=== PATIENT | female | born 1960 | race Caucasian/White ===

== ENCOUNTER 2017-05-29 14:00 | Emergency (ER) | payer BC ==
[~2017-05-29] VITALS: Ht 156.2 cm; Wt 90.3 kg
[2017-05-29 14:00] VITALS: O2SAT 94
[2017-05-29] MEDS ORDERED: ONDANSETRON INJ 2 MG/ML 2 ML VIAL IV STA (14:09)
--- NOTE | 2017-05-29 14:10 | EMERGENCY ROOM VISIT NOTE ---
History Report prepared by Rajendra: Lui Soares Under the Supervision of: Dr. Manuel Younger D.O. First contact with patient: 14:00 Stated Complaint: L SIDE RIB PAIN History of Present Illness The patient is a 56 year old female who presents to the Emergency Room with complaints of constant, left sided rib pain beginning earlier today. The patient states she has been experiencing a chronic cough for the past 1.5 years. She reports she coughed today and heard and felt a pop. The patient notes she can no longer breathe deeply without her pain increasing. She states she was evaluated at [facility] for a boil on her bottom. The patient reports she was discharged with antibiotics. She notes she recently started RA medication, and she thinks this may be causing her boils. The patient states she was told she had a fever while at [facility]. She reports she has a history of asthma and bronchiectasis. The patient notes she is currently on Prednisone. She states she quit smoking 19 years ago. She denies new pain in her legs, a history of a blood clot in her legs or lungs, nausea, vomiting, runny nose, and starting new medication. Source of History: patient Onset: earlier today Position: other (left-sided rib) Quality: other (pop) Timing: constant Modifying Factors (Worsening): breathing (deep) Associated Symptoms: + fevers, + cough (chronic, 1.5 years), No nausea, No vomiting Note: Associated symptoms: boil on her bottom Denies: new pain in her lungs, runny nose Review of Systems See HPI for pertinent positives & negatives. A total of 10 systems reviewed and were otherwise negative. Past Medical & Surgical Medical Problems: (1) Asthma (2) Bronchiectasis Family History Patient reports no known family medical history. Social History Smoking Status: Former Smoker (quit 19 years ago) Marital Status: Housing Status: lives with significant other Occupation Status: employed Current/Historical Medications Scheduled Acetaminophen (Tylenol Arthritis Ext Rel), 1,300 MG PO BID Aspirin (Aspirin Ec), 81 MG PO DAILY Atorvastatin (Lipitor), 10 MG PO DAILY Fluticasone Propionate (Nasal) (Flonase Allergy Relief), 1 SPRAY LUCY DAILY Ipratropium-Albuterol (Duoneb), 1 TREATMENT INH QID Loratadine (Claritin), 10 MG PO DAILY Mometasone Furoate-Formoterol (Dulera 100/5 Mcg), 2 PUFFS INH BID Montelukast Sodium (Montelukast Sodium), 10 MG PO DAILY Nystatin (Nystatin Cream), 0 EXT BID Nystatin (Topical) (Nystop), 1 APPLN TOP TID Stanley-3 Fatty Acids (Fish Oil), 2 CAP PO BID Omeprazole (Prilosec), 20 MG PO BID Prednisone (Prednisone), 10 MG PO DAILY Tiotropium [place] (Spiriva Handihaler), 1 CAP INH DAILY Tocilizumab (Actemra), 162 MG SC EVERY 14 DAYS Scheduled PRN Albuterol Hfa (Ventolin Hfa), 2 PUFFS INH Q4H PRN for SOB/Wheezing Oxycodone Immediate Rel Tab (Roxicodone Ir), 1-2 TAB PO Q4H PRN for Severe Pain Allergies Coded Allergies: No Known Allergies (Unverified , 05/29/17) Physical Exam Vital Signs Date Time Temp Pulse Resp B/P (MAP) Pulse Ox O2 Delivery O2 Flow Rate FiO2 05/29/17 16:55 36.8 80 25 157/72 94 05/29/17 16:35 80 25 94 05/29/17 16:31 157/72 05/29/17 16:05 79 19 91 05/29/17 16:01 158/81 05/29/17 15:43 146/92 05/29/17 15:43 76 19 146/92 93 Room Air 05/29/17 15:05 77 17 05/29/17 15:00 84 23 152/72 91 05/29/17 14:32 140/94 05/29/17 14:30 84 19 05/29/17 14:17 77 05/29/17 14:11 163/76 05/29/17 14:00 94 Room Air 05/29/17 14:00 36.8 86 20 172/71 94 Room Air 05/29/17 14:00 94 Room Air Physical Exam GENERAL: Patient is awake, alert, and is somewhat anxious and uncomfortable. EYES: The conjunctivae are clear. The pupils are round and reactive. EARS, NOSE, MOUTH AND THROAT: The nose is without any evidence of any deformity. Mucous membranes are moist tongue is midline NECK: The neck is nontender and supple. RESPIRATORY: Splinting respiration noted. Diminished breath sounds noted throughout. CARDIOVASCULAR: Regular rate and rhythm noted there no murmurs rubs or gallops normal S1 normal S2 GASTROINTESTINAL: The abdomen is soft. Bowel sounds are present in all quadrants. Abdomen is nontender MUSCULOSKELETAL/EXTREMITIES: There is no evidence of gross deformity full range of motion is noted in the hips and shoulders. Tenderness to palpation over the left lateral chest wall. SKIN: There is no obvious evidence of any rash. There are no petechiae, pallor or cyanosis noted. No pedal edema. Induration and erythema on the left buttock consistent with recent diagnosis of cellulitis. NEUROLOGIC: Patient is awake alert and oriented x3 Medical Decision & Procedures ER Provider Diagnostic Interpretation: Radiology results as stated below per my review and radiologist interpretation: L RIBS UNILATERAL WITH PA CHEST HISTORY: 56 years-old Female left rib pain acute left-sided rib pain status post fall COMPARISON: None available TECHNIQUE: PA view of the chest with 4 views of the left ribs FINDINGS: Cardiomediastinal and hilar silhouettes are within normal limits. Degenerative changes are seen within the spine and shoulders. No pneumothorax, pleural effusion, focal airspace consolidation or overt pulmonary edema. There is an acute nondisplaced complete fracture involving the posterior lateral aspect of the left ninth rib. No additional acute rib fracture identified. IMPRESSION: 1. No acute cardiopulmonary process. 2. Acute nondisplaced fracture of the posterior lateral left ninth rib. No pneumothorax. The above report was generated using voice recognition software. It may contain grammatical, syntax or spelling errors. Electronically signed by: Benjamin Sanchez M.D. 05/29/2017 3:47 PM Dictated Date/Time: 05/29/2017 3:43 PM Laboratory Results 05/29/17 14:17 Red Blood Count 3.95, Mean Corpuscular Volume 94.7, Mean Corpuscular Hemoglobin 30.4, Mean Corpuscular Hemoglobin Concent 32.1, Mean Platelet Volume 9.0, Neutrophils (%) (Auto) 95.1, Lymphocytes (%) (Auto) 3.2, Monocytes (%) (Auto) 1.2, Eosinophils (%) (Auto) 0.2, Basophils (%) (Auto) 0.1, Neutrophils # (Auto) 15.45, Lymphocytes # (Auto) 0.52, Monocytes # (Auto) 0.20, Eosinophils # (Auto) 0.03, Basophils # (Auto) 0.01 05/29/17 14:17 Test 05/29/17 14:17 White Blood Count 16.25 K/uL (4.8-10.8) Red Blood Count 3.95 M/uL (4.2-5.4) Hemoglobin 12.0 g/dL (12.0-16.0) Hematocrit 37.4 % (37-47) Mean Corpuscular Volume 94.7 fL (80-100) Mean Corpuscular Hemoglobin 30.4 pg (25-34) Mean Corpuscular Hemoglobin Concent 32.1 g/dl (32-36) Platelet Count 213 K/uL (130-400) Mean Platelet Volume 9.0 fL (7.4-10.4) Neutrophils (%) (Auto) 95.1 % Lymphocytes (%) (Auto) 3.2 % Monocytes (%) (Auto) 1.2 % Eosinophils (%) (Auto) 0.2 % Basophils (%) (Auto) 0.1 % Neutrophils # (Auto) 15.45 K/uL (1.4-6.5) Lymphocytes # (Auto) 0.52 K/uL (1.2-3.4) Monocytes # (Auto) 0.20 K/uL (0.11-0.59) Eosinophils # (Auto) 0.03 K/uL (0-0.5) Basophils # (Auto) 0.01 K/uL (0-0.2) RDW Standard Deviation 46.4 fL (36.4-46.3) RDW Coefficient of Variation 13.4 % (11.5-14.5) Immature Granulocyte % (Auto) 0.2 % Immature Granulocyte # (Auto) 0.04 K/uL (0.00-0.02) Prothrombin Time 10.1 SECONDS (9.0-12.0) Prothromb Time International Ratio 1.0 (0.9-1.1) Activated Partial Thromboplast Time 24.0 SECONDS (21.0-31.0) Partial Thromboplastin Ratio 0.9 Anion Gap 10.0 mmol/L (3-11) Est Creatinine Clear Calc Drug Dose 95.5 ml/min Estimated GFR () 113.3 Estimated GFR (Non- 97.8 BUN/Creatinine Ratio 20.0 (10-20) Calcium Level 9.0 mg/dl (8.5-10.1) Total Bilirubin 0.6 mg/dl (0.2-1) Aspartate Amino Transf (AST/SGOT) 23 U/L (15-37) Alanine Aminotransferase (ALT/SGPT) 35 U/L (12-78) Alkaline Phosphatase 80 U/L (45-117) Troponin I < 0.015 ng/ml (0-0.045) Total Protein 7.4 gm/dl (6.4-8.2) Albumin 3.7 gm/dl (3.4-5.0) Globulin 3.7 gm/dl (2.5-4.0) Albumin/Globulin Ratio 1.0 (0.9-2) Laboratory results per my review. Medications Administered Medications (Trade) Dose Ordered Sig/Kathleen Route Start Time Stop Time Status Last Admin Dose Admin Ampicillin Sodium/ Sulbactam Sodium 3000 mg/Sodium Chloride 108 ml @ 200 mls/hr ONE ONCE IV 05/29/17 14:15 05/29/17 14:47 DC 05/29/17 14:15 200 MLS/HR Morphine Sulfate (MoRPHine SULFATE INJ) 4 mg Q15M PRN IV 05/29/17 14:15 06/12/17 14:14 05/29/17 15:44 4 MG Ondansetron HCl (Zofran Inj) 4 mg NOW STAT IV 05/29/17 14:09 05/29/17 14:11 DC 05/29/17 14:44 4 MG ECG Indication: chest pain Rate (beats per minute): 78 Rhythm: normal sinus Findings: no ectopy, other (No ST segment abnormality) Comparison ECG Date: no prior available Change: Patient's EKG was interpreted by me. ED Course 1403: The patient was evaluated in room C08. A complete history and physical examination were performed. 1409: Ordered Ondansetron HCl 4mg IV 1415: Ordered Morphine Sulfate 4mg IV, Ampicillin Sodium/Sulbactam Sodium 3000mg /Sodium Chloride 108 ml @ 200 mls/hr. 1550: I reevaluated the patient and updated her of her current exam findings. 1626: Upon reevaluation, the patient is resting comfortably. I discussed the results and treatment plan with her. She verbalized agreement of the treatment plan. The patient was discharged home. Medical Decision Differential diagnosis: Etiologies such as cardiac ischemia, aortic dissection, pulmonary embolism, pneumonia, pneumothorax, musculoskeletal, infections, pericarditis, myocarditis , esophageal rupture, gastrointestinal, as well as others were entertained. Nursing notes reviewed. The patient is a 56-year-old female who presented to the emergency department for an evaluation of left-sided chest pain. The patient appears to have a broken rib. She's had a cough this been ongoing for the last year but became worse over the last month. She does not appear to have signs of pneumonia. She was treated with IV pain medication in the emergency department. I discussed the patient's laboratory and radiographic studies with her. She also appears to have cellulitis of her left gluteal region. She was seen at an urgent care center for this today and was started on antibiotic. At this time it does not appear to be consistent with a fluid collection. I recommended that she continue all medications as prescribed for this as well and follow-up with her doctor in case it an incision and drainage would be warranted. She was also encouraged to return to the emergency department immediately if symptoms change worsen or the need arises. [place] Drug Monitoring Program Search Results: patient reviewed within database, no issues identified Impression Primary Impression: Rib fracture Additional Impressions: Chest pain Cellulitis, gluteal Scribe Attestation The scribe's documentation has been prepared under my direction and personally reviewed by me in its entirety. I confirm that the note above accurately reflects all work, treatment, procedures, and medical decision making performed by me. Departure Information Dispostion Home / Self-Care Prescriptions Oxycodone Immediate Rel Tab (ROXICODONE IR) 5 Mg Tab 1-2 TAB PO Q4H Y for Severe Pain, #24 TAB Prov: Manuel Younger, 05/29/17 Referrals Lisset Tapia PA-C Forms HOME CARE DOCUMENTATION FORM, IMPORTANT VISIT INFORMATION, WORK / SCHOOL INSTRUCTIONS Patient Instructions Cellulitis Dc, ED Fx Rib, My [facility] Additional Instructions Follow-up with your family for reevaluation. Continue all medications as prescribed. Rest and avoid any strenuous activity. Continue using Motrin and Tylenol as directed for pain. Try using warm sits baths a few times a day. Problem Qualifiers Primary Impression: Rib fracture Encounter type: initial encounter Rib fracture type: single rib Fracture type: closed Laterality: left Qualified Codes: S22.32XA - Fracture of one rib, left side, initial encounter for closed fracture Additional Impressions: Chest pain Chest pain type: unspecified Qualified Codes: R07.9 - Chest pain, unspecified
[2017-05-29 14:13] VITALS: Ht 156.2 cm; Wt 90.3 kg
[2017-05-29] MEDS ORDERED: AMPICILLIN/SULBACTAM SOD INJ 3,000 MG in SODIUM CHLORIDE 0.9% 100ML 100 ML IV ONE (14:15)
[2017-05-29 14:41] LABS: BASO % 0.1 %; BASO ABS # 0.01 K/uL (0-0.2); EOS % 0.2 %; EOS ABS # 0.03 K/uL (0-0.5); HEMATOCRIT 37.4 % (37-47); IG# 0.04 K/uL (0.00-0.02); LYMPH % 3.2 %; LYMPH ABS # 0.52 K/uL (1.2-3.4); MEAN CELL VOLUME 94.7 fL (80-100); MEAN CORPUSCULAR HEMOGLOBIN 30.4 pg (25-34); MEAN CORPUSCULAR HGB CONC 32.1 g/dl (32-36); MONO % 1.2 %; NEUT % 95.1 %; NEUT ABS # 15.45 K/uL (1.4-6.5); PLATELET COUNT 213 K/uL (130-400); RED CELL DISTRIBUTION WIDTH CV 13.4 % (11.5-14.5); RED CELL DISTRIBUTION WIDTH SD 46.4 fL (36.4-46.3); WHITE BLOOD COUNT 16.25 K/uL (4.8-10.8)
[2017-05-29] MEDS: MoRPHine SULFATE 4 MG/ML 1 ML CARP\\VIAL IV PRN ×2 (14:43→15:44)
[2017-05-29 14:54] LABS: ALBUMIN 3.7 gm/dl (3.4-5.0); ALT/SGPT 35 U/L (12-78); BLOOD UREA NITROGEN 14 mg/dl (7-18); CARBON DIOXIDE 25 mmol/L (21-32); CREATININE 0.68 mg/dl (0.60-1.20); GLUCOSE 122 mg/dl (70-99); POTASSIUM 3.9 mmol/L (3.5-5.1); SODIUM 137 mmol/L (136-145)
[2017-05-29] MEDS ORDERED: TOCI20IN SC (14:58)
[2017-05-29] MEDS ORDERED: ACET1TAB84 PO (14:58)
[2017-05-29] MEDS ORDERED: OMEGCAP2 PO (14:58)
[2017-05-29] MEDS ORDERED: CLR10 PO (14:58)
[2017-05-29] MEDS ORDERED: IPRASOL4 INH (14:58)
[2017-05-29] MEDS ORDERED: ASPI81TA28 PO (14:58)
[2017-05-29] MEDS ORDERED: PRED10TA PO (14:58)
[2017-05-29] MEDS ORDERED: PRLSR20 PO (14:58)
[2017-05-29] MEDS ORDERED: MONT1TAB5 PO (14:58)
[2017-05-29] MEDS ORDERED: FLUT0.15 NAE (14:58)
[2017-05-29] MEDS ORDERED: NYSCR30 EXT (14:58)
[2017-05-29] MEDS ORDERED: VNTHFA/IN INH (14:58)
[2017-05-29] MEDS ORDERED: NYST100010 TOP (14:58)
[2017-05-29] MEDS ORDERED: SPRIN/30 INH (14:58)
[2017-05-29] MEDS ORDERED: ATOR10TA82 PO (14:58)
[2017-05-29] MEDS ORDERED: MOME100A INH (14:58)
[2017-05-29 14:59] LABS: ALKALINE PHOSPHATASE 80 U/L (45-117); AST/SGOT 23 U/L (15-37); TOTAL PROTEIN 7.4 gm/dl (6.4-8.2)
--- NOTE | 2017-05-29 15:48 | DIAGNOSTIC IMAGING REPORT ---
L RIBS UNILATERAL WITH PA CHEST HISTORY: 56 years-old Female left rib pain acute left-sided rib pain status post fall COMPARISON: None available TECHNIQUE: PA view of the chest with 4 views of the left ribs FINDINGS: Cardiomediastinal and hilar silhouettes are within normal limits. Degenerative changes are seen within the spine and shoulders. No pneumothorax, pleural effusion, focal airspace consolidation or overt pulmonary edema. There is an acute nondisplaced complete fracture involving the posterior lateral aspect of the left ninth rib. No additional acute rib fracture identified. IMPRESSION: 1. No acute cardiopulmonary process. 2. Acute nondisplaced fracture of the posterior lateral left ninth rib. No pneumothorax. The above report was generated using voice recognition software. It may contain grammatical, syntax or spelling errors. Electronically signed by: Benjamin Sanchez M.D. 05/29/2017 3:47 PM Dictated Date/Time: 05/29/2017 3:43 PM
[2017-05-29] MEDS ORDERED: OXYC1TAB3 PO (16:21)
[2017-05-29 16:55] VITALS: BP 157/72; PULSE 80; TEMP 36.8; O2SAT 94
== END 2017-05-29 16:55 | disposition home or self-care (01) ==
LOC: EDBD 14:00 → C.EDC 14:01
DX: S22.32XA Fracture of one rib, left side, initial encounter for closed fracture (principal); X50.3XXA Overexertion from repetitive movements, initial encounter; R07.9 Chest pain, unspecified; L03.317 Cellulitis of buttock; J45.909 Unspecified asthma, uncomplicated; Z87.891 Personal history of nicotine dependence; Z79.82 Long term (current) use of aspirin; Z79.899 Other long term (current) drug therapy